=== PATIENT | female | born 1965 | race Caucasian/White ===

== ENCOUNTER → 2017-04-30 | Outpatient (CLI) | payer OTHER | LOC: FIMAGING 10:18 | PROVIDERS: ATTEND Pediatrics | DX: E04.1 Nontoxic single thyroid nodule (principal); E03.9 Hypothyroidism, unspecified ==

== ENCOUNTER → 2017-05-17 | Outpatient (CLI) | payer OTHER | LOC: BMCIMAGING 08:04 | PROVIDERS: ATTEND Registered Nurse Maternal Newborn | DX: N93.9 Abnormal uterine and vaginal bleeding, unspecified (principal); N95.9 Unspecified menopausal and perimenopausal disorder ==